=== PATIENT | female | born 1990 | race Caucasian/White ===

== ENCOUNTER 2017-07-14 13:54 | Day surgery (SDC) | payer OTHER ==
[2017-07-13 15:22] VITALS: BMI 35.5
[2017-07-14] MEDS ORDERED: ROCURONIUM BROMIDE 50 MG/5 ML VIAL ONE (16:12)
[2017-07-14] MEDS ORDERED: PROPOFOL 20 ML ONE (16:12)
[2017-07-14] MEDS ORDERED: MIDAZOLAM HCL 2 MG/2 ML SINGLE DOSE VIAL ONE (16:12)
[2017-07-14] MEDS ORDERED: ceFAZolin SODIUM 1 GM VIAL ONE (16:30)
[2017-07-14] MEDS ORDERED: ceFAZolin SODIUM 1 GM VIAL IVPB ONE (16:34)
[2017-07-14] MEDS ORDERED: DEXAMETHASONE SOD PHOSPHATE 4 MG/1 ML VIAL ONE (16:45)
[2017-07-14] MEDS ORDERED: KETOROLAC TROMETHAMINE 30 MG/1 ML VIAL ONE (17:07)
[2017-07-14] MEDS ORDERED: ISOSULFAN BLUE 10 MG/ML VIAL SQ ONE (17:20)
[2017-07-14] MEDS ORDERED: BUPIVACAINE HCL/PF 0.5% (5MG/ML) 10 ML VIAL ONE (17:43)
[2017-07-14] MEDS ORDERED: ONDANSETRON 4 MG/2 ML VIAL IVPUSH PRN (17:59)
[2017-07-14] MEDS ORDERED: SODIUM CHLORIDE 1,000 ML IV SCH ×2 (18:00→23:45)
[2017-07-14] MEDS ORDERED: ACETAMINOPHEN INJECTION 100 ML IVPB ONE (18:11)
--- NOTE | 2017-07-14 18:12 | OP ---
Operative Note - Note: Operative Date: 07/14/17 Pre-Operative Diagnosis: Epigastric Pain. Vomiting. GE Reflux Disease. Malfunctioning mechanical Device secondary to band Operation: Removal of Gastric Band plus sub-Q port. Lap Lysis of adhesions. Excision of fibrous capsule around stomach. Diagnostic Laparoscopy Findings: Large amount of adhesions between omentum, liver and band Post-Operative Diagnosis: Same as Pre-op (Abdominal adhesions;fibrous capsule around stomach) Surgeon: Gregorio Briceño Salt Machine Operator: Milton Hawkins Anesthesia: General Specimens Removed: Gastric Band plus sub-Q port Estimated Blood Loss (mls): 30 Operative Report Dictated: Yes
--- NOTE | 2017-07-14 18:12 | SURG ---
Surgery Loom Setter Note Loom Setter: Milton Hawkins PA-C Date of Service: 07/14/17 Diagnosis: Mechanical failure of slipped device (lap band), GERD, nausea/vomiting Procedure: Laprascopic removal of gastric band I was present for the entirety of the operative procedure. For further detail, please refer to operative report. Visit type - Case Type Case Type: Scheduled - New patient This patient is new to me today: Yes Date on this admission: 07/14/17
[2017-07-14] MEDS ORDERED: LACTATED RINGERS SOLUTION 1,000 ML IV SCH (18:30)
[2017-07-14] MEDS ORDERED: ACETAMINOPHEN 1000 MG/100 ML VIAL (NON FORMULARY) IVPB ONE (18:30)
[2017-07-14] MEDS ORDERED: FAMOTIDINE 20 MG/50 ML IVPB 20 MG/50 ML MG IVPB ONE (18:47)
[2017-07-14] MEDS ORDERED: FAMOTIDINE 20 MG PREMIXED IVPB IVPB ONE (19:05)
[2017-07-14] MEDS: oxyCODONE HCL 5 MG TABLET PO PRN (20:58)
--- NOTE | 2017-07-14 21:04 | HP ---
DATE OF ADMISSION: 07/14/2017 CHIEF COMPLAINT: 1. Epigastric pain. 2. Vomiting. 3. Malfunctioning mechanical device secondary to gastric band. HISTORY OF PRESENT ILLNESS: This patient is a 27-year-old female who has had the gastric band for approximately 3 years and causing her increasing difficulty. She has been experiencing increasing epigastric pain, vomiting related to malfunctioning of the gastric band. She presents now for elective removal of gastric band plus subcutaneous port. PAST MEDICAL AND SURGICAL HISTORY: Noncontributory except for placement of the band. MEDICATIONS: The patient takes no medication. ALLERGIES: She has no known allergies. REVIEW OF SYSTEMS: Neurologic: Within normal limits. Gastrointestinal: Positive for occasional heartburn and epigastric pain. Cardiovascular: Within normal limits. Genitourinary: Within normal limits. Musculoskeletal: Within normal limits. PHYSICAL EXAMINATION: General: A 27-year-old female, overweight, awake, alert. No acute distress. HEENT: No masses palpated. Lungs: Clear bilaterally. Heart: Regular sinus rhythm. Abdomen: Well-healed trocar incisions. Soft, nontender on palpation. Extremities: Within normal limits. IMPRESSION: Epigastric pain and vomiting secondary to malfunctioning gastric band. PLAN: Plan is for the OR for removal of gastric band plus subcutaneous port. Miriam [id number]
[2017-07-14] MEDS: FAMOTIDINE 20 MG/50 ML IVPB 20 MG/50 ML MG IVPB SCH (22:00)
[2017-07-15] MEDS: oxyCODONE HCL 5 MG TABLET PO PRN (00:48)
--- NOTE | 2017-07-15 08:45 | EKG ---
Test Reason : Blood Pressure : / mmHG Vent. Rate : 070 BPM Atrial Rate : 070 BPM P-R Int : 178 ms QRS Dur : 088 ms QT Int : 386 ms P-R-T Axes : 048 041 026 degrees QTc Int : 416 ms NORMAL SINUS RHYTHM CANNOT RULE OUT ANTERIOR INFARCT , AGE UNDETERMINED ABNORMAL ECG NO PREVIOUS ECGS AVAILABLE Confirmed by VERONIKA GUARDADO, YAA ([id number]) on 07/15/2017 8:44:45 AM Referred By: Confirmed By:YAA BANDA MD
[2017-07-15] MEDS: FAMOTIDINE 20 MG/50 ML IVPB 20 MG/50 ML MG IVPB SCH (09:07)
--- NOTE | 2017-07-15 09:52 | OP ---
DATE OF OPERATION: 07/14/2017 PREOPERATIVE DIAGNOSES: 1. Epigastric abdominal pain. 2. Vomiting. 3. Gastroesophageal reflux disease. 4. Malfunctioning mechanical complication of implantable device, secondary to gastric band. POSTOPERATIVE DIAGNOSES: 1. Epigastric abdominal pain. 2. Vomiting. 3. Gastroesophageal reflux disease. 4. Mechanical complication of implantable device, secondary to gastric band. 5. Abdominal adhesions. 6. Fibrous capsule around the stomach. PROCEDURES PERFORMED: 1. Removal of gastric band plus subcutaneous port component. 2. Excision of fibrous capsule around the stomach. 3. Laparoscopic lysis of adhesions. 4. Diagnostic laparoscopy. OPERATING SURGEON: Gregorio Briceño MD RN AMBULATORY: RUDY Arguello ANESTHESIA: General. OPERATIVE PROCEDURE: The patient was brought into the operating room and placed on the OR table in the supine position. All precautions were taken initially, including padding for the back and the feet, and Venodyne boots were placed on both lower extremities. At that point, the abdomen was prepped and draped in the usual manner. A Veress needle was placed in the left upper quadrant and a pneumoperitoneum was established. A number-12 bladeless trocar was placed in the left upper quadrant. Through that trocar, a laparoscopic camera was placed. Immediately upon placing the camera, there were noted to be a lot of adhesions from the patient's previous surgery. These were adhesions between the omentum and the anterior abdominal wall in the midline and also in the left upper quadrant in front of the laparoscope. At that point, a number-12 bladeless trocar was placed below the left costal margin. With the camera placed here, the adhesions in the left upper quadrant were lysed between the omentum and anterior abdominal wall. Enough opening was created that a number-15 trocar was placed in the right upper quadrant and a number-5 trocar below the right costal margin. At that point, a Scotty liver retractor was placed in the epigastrium to retract the left lobe of the liver. The patient was then placed in a 20-degree, reverse Trendelenburg position. The band tubing was noted in the left upper quadrant and this was grabbed by the operating surgeon. As the accounting assistant surgeon retracted the adhesions downward, the cautery was used to dissect the adhesions off of the band tubing and this led to the band around the top part of the stomach. As the accounting assistant surgeon retracted the band tubing to the patient's left side, the operating surgeon retracted the stomach on the lesser curvature inferiorly. This exposed the fibrous capsule around the band and this was dissected off with electrocautery until the entire band on the lesser curvature was now in full view. At this juncture, the operating surgeon pulled the band tubing toward the patient's right side as the accounting assistant surgeon retracted the stomach on the greater curvature inferiorly. Here, the fibrous capsule over the band was dissected with electrocautery and now the band was then opened and the band tubing was cut at the takeoff to the subcutaneous port. The band tubing was then placed from around the band and the band was then removed from around the stomach and sent off the field as a specimen to Pathology. Attention was now directed to the fibrous capsule around the stomach. With the accounting assistant operating surgeon holding it on a different side, the operating surgeon placed a scissors, dissected under the capsule and split the capsule from inferior to superior. Near the superior part, there appeared to be an opening which was suspicious that it was stomach. Methylene blue was placed by Anesthesia into the orogastric tube and no blue dye was seen in the operative field. Also, saline was placed around the area and the anesthesiologist blew the stomach up with air and no bubbles were noted. However, despite this, a [id number] suture was placed with the Endo Stitch and this closed what appeared to be a superficial opening, but it was not proven that it was stomach. Once the Endo Stitch was tied, it was completely closed. Now, the band was removed through the number-15 trocar site and sent off the field as specimen to Pathology. Under direct vision, all trocars were removed and the pneumoperitoneum released. At this point, the right upper quadrant port site was then opened and dissection continued with electrocautery down to the fibrous capsule on the port on the right anterior rectus muscle. The fibrous capsule removed and the port was then removed from the right anterior rectus muscle and sent off the field as specimen to Pathology. All trocar sites then received 0.25% Marcaine. The number-15 trocar site was closed with 3-0 Vicryl in the subcutaneous tissue and all trocar sites were closed with 4-0 Biosyn in a subcuticular fashion. Dressings were applied. The patient was awoken from anesthesia and transferred out of the operating room into the recovery room in stable condition. BLOOD LOSS: 50 mL. Patient transferred to the recovery room in stable condition. Miriam AGUIRRE/[id number]
[2017-07-15 10:46] VITALS: BP 123/63; PULSE 83; TEMP 98.9
--- NOTE | 2017-07-19 11:58 | PATH ---
Surgical Pathology Report Patient Name: YING BALDWIN Med. Rec. #: [id number] /Age/Gender: 1990 (Age: 27) / F Account: [id number] Location: [facility] Taken: 07/14/2017 Received: 07/18/2017 Reported: 07/19/2017 Physicians: Gregorio Briceño M.D. Specimen(s) Received REMOVED GASTRIC BAND Clinical History Morbid obesity Final Diagnosis GASTRIC BAND, REMOVAL: CONSISTENT WITH GASTRIC BAND (REHABILITATION ATTENDANT), GROSS EXAMINATION ONLY. Electronically Signed Eddie Orta M.D. Gross Description Received fresh labeled "removed gastric band," is a 4 cm in diameter white, annular device with a focal defect, consistent with a gastric band. The band displays a 42 cm in length portion of white tubing extending from one aspect. Also received within the same container is a 3 cm in diameter x 1.5 cm in depth white, circular device, consistent with a port. The port displays a 13 cm in length portion of tubing extending from one aspect. No soft tissue is present. No sections are submitted, gross only. DL/07/18/2017 saudi/07/18/2017
== END 2017-07-15 10:50 | disposition home or self-care (01) ==
LOC: JASU-SURG 13:54 → J8W 20:27 → JASU-SURG 07-15 10:50
PROVIDERS: ATTEND Surgery
PROC: 0DP60CZ Removal of Extraluminal Device from Stomach, Open Approach (ICD-10-PCS; 2017-07-14)
PROC: 0DN64ZZ Release Stomach, Percutaneous Endoscopic Approach (ICD-10-PCS; 2017-07-14)
PROC: 0DP64CZ Removal of Extraluminal Device from Stomach, Percutaneous Endoscopic Approach (ICD-10-PCS; principal; 2017-07-14 14:00)
DX: T85.518A Breakdown (mechanical) of other gastrointestinal prosthetic devices, implants and grafts, initial encounter (principal); K95.09 Other complications of gastric band procedure; K31.89 Other diseases of stomach and duodenum; R10.13 Epigastric pain; R11.10 Vomiting, unspecified; K21.9 Gastro-esophageal reflux disease without esophagitis; Y93.89 Activity, other specified; Y92.89 Other specified places as the place of occurrence of the external cause
CPT/HCPCS: 36415; 84703; 86850; 86900; 86901; 88300-TC; 93005; 93010; 94760; J0131; J7030

== ENCOUNTER 2017-07-16 14:34 | Emergency (ER) | payer OTHER ==
--- NOTE | 2017-07-16 14:35 | PDOC ---
History of Present Illness - General History Source: Patient Exam Limitations: No Limitations - History of Present Illness Initial Comments: 07/16/17 16:23 The patient is a 27 year old female with no significant PMH who presents to the emergency department with shortness of breath for 3 days. The patient reports that she had a lap band removal surgery 3 days ago . she reports that since then she has been experiencing shortness of breath. The patient reports associated chest pain with her shortness of breath. She states that she also experiences her chest pain with deep breath. The patient denies any any headache and dizziness. She denies any fever, chills, nausea, vomit, diarrhea, constipation or urinary symptoms. The patient denies any other complaints. <Starla Olmstead - Last Filed: 07/16/17 16:23> <Giuliana Anderson - Last Filed: 07/16/17 18:51> - General Chief Complaint: Shortness of Breath Stated Complaint: SOB Time Seen by Provider: 07/16/17 14:35 Past History <Starla Olmstead - Last Filed: 07/16/17 16:23> - Past Medical History Anemia: No Asthma: No Cancer: No Cardiac Disorders: No CVA: No COPD: No CHF: No Dementia: No Diabetes: No GI Disorders: No Disorders: Yes (PCOS) HTN: No Hypercholesterolemia: No Liver Disease: No Seizures: No Thyroid Disease: No - Surgical History Abdominal Surgery: Yes (GASTRIC BAND) Appendectomy: No Cardiac Surgery: No Cholecystectomy: No Lung Surgery: No Neurologic Surgery: No Orthopedic Surgery: No - Suicide/Smoking/Psychosocial Hx Smoking Status: No Smoking History: Never smoked Have you smoked in the past 12 months: No Number of Cigarettes Smoked Daily: 0 Hx Alcohol Use: No Drug/Substance Use Hx: No Substance Use Type: Alcohol Hx Substance Use Treatment: No <Giuliana Anderson - Last Filed: 07/16/17 18:51> - Past Medical History Allergies/Adverse Reactions: Allergies Allergy/AdvReac Type Severity Reaction Status Date / Time No Known Allergies Allergy Verified 07/16/17 14:35 Home Medications: Ambulatory Orders Bcp 1 cap PO DAILY 07/13/17 Famotidine [Pepcid -] 20 mg PO BID #60 tablet 07/14/17 Oxycodone HCl/Acetaminophen [Percocet 5-325 mg Tablet] 1 - 2 tab PO Q6H PRN #20 tab MDD 4 07/14/17 Cephalexin [Keflex] 500 mg PO BID #6 capsule 07/16/17 Review of Systems - Review of Systems Able to Perform ROS?: Yes Comments:: 07/16/17 16:23 GENERAL/CONSTITUTIONAL: No fever or chills. No weakness. HEAD, EYES, EARS, NOSE AND THROAT: No change in vision. No ear pain or discharge. No sore throat. CARDIOVASCULAR: (+)chest pain and shortness of breath. RESPIRATORY: No cough, wheezing, or hemoptysis. GASTROINTESTINAL: No nausea, vomiting, diarrhea or constipation. GENITOURINARY: No dysuria, frequency, or change in urination. MUSCULOSKELETAL: No joint or muscle swelling or pain. No neck or back pain. SKIN: No rash NEUROLOGIC: No headache, vertigo, loss of consciousness, or change in strength/ sensation. ENDOCRINE: No increased thirst. No abnormal weight change. HEMATOLOGIC/LYMPHATIC: No anemia, easy bleeding, or history of blood clots. ALLERGIC/IMMUNOLOGIC: No hives or skin allergy. <Starla Olmstead - Last Filed: 07/16/17 16:23> *Physical Exam - Vital Signs Last Vital Signs Temp Pulse Resp BP Pulse Ox 98.8 F 74 20 115/67 100 07/16/17 14:35 07/16/17 14:35 07/16/17 14:35 07/16/17 14:35 07/16/17 14:35 - Physical Exam Comments: 07/16/17 16:23 GENERAL: Awake, alert, and fully oriented, in no acute distress HEAD: No signs of trauma EYES: PERRLA, EOMI, sclera anicteric, conjunctiva clear ENT: Auricles normal inspection, hearing grossly normal, nares patent, oropharynx clear without exudates. Moist mucosa NECK: Normal ROM, supple, no lymphadenopathy, JVD, or masses LUNGS: Breath sounds equal, clear to auscultation bilaterally. No wheezes, and no crackles HEART: Regular rate and rhythm, normal S1 and S2, no murmurs, rubs or gallops ABDOMEN: Belly Soft, nontender, normoactive bowel sounds. No guarding, no rebound. No masses EXTREMITIES: Normal range of motion, no edema in legs, no calf tenderness. No clubbing or cyanosis. No cords, erythema, or tenderness NEUROLOGICAL: Cranial nerves II through XII grossly intact. Normal speech, normal gait SKIN: Warm, Dry, normal turgor, no rashes or lesions noted. <Starla Olmstead - Last Filed: 07/16/17 16:23> Heart Score/ECG Review - ECG Intrepretation Comment:: 07/16/17 16:31 sinus at 78, nl axis, nl interval, no acute st/t wave findings <Giuliana Anderson - Last Filed: 07/16/17 18:51> ED Treatment Course - LABORATORY CBC & Chemistry Diagram: 07/16/17 16:05 07/16/17 16:05 - Medications Given in the ED: ED Medications Discontinued Medications Generic Name Dose Route Start Last Admin Trade Name Freq PRN Reason Stop Dose Admin Sodium Chloride 1,000 ml 07/16/17 15:06 07/16/17 16:15 Normal Saline - IV 07/16/17 15:07 1,000 ml ONCE ONE Administration <Starla Olmstead - Last Filed: 07/16/17 16:23> - LABORATORY CBC & Chemistry Diagram: 07/16/17 16:05 07/16/17 16:05 <Giuliana Anderson - Last Filed: 07/16/17 18:51> Medical Decision Making - Medical Decision Making 07/16/17 15:13 a/p: 27yo female with pleuritic cp after having surgery monday -pt is s/p laproscopic lap band removal on monday with dr. handy -has been mainly in bed since -no leg swelling or calf cramping -c/o feeling sob and having pleuritic cp -spoke with her surgeon this AM who sent her in for eval for poss PE -differential - chest discomfort from intubation, pe, pna, atelectasis, abd free air from laproscopic surgery pushing up on the diaphragms -discussed CT imaging - pt requesting to have CT imaging -will obtain labs, ekg, cta chest to eval for pe 07/16/17 18:38 pt states she is feeling better has been burping which is relieving the pain discussed lab results will give abx for uti pt pending ct read 07/16/17 18:[address] small b/l pleural effusions and compressive atelectasis discussed imaging findings pt has an incentive spirometer at home, however is not using it discussed needing to use the Incentive spirometer at home answered all questions discussed all reasons to return to the ED. stable for d/c to home <Giuliana Anderson - Last Filed: 07/16/17 18:51> *DC/Admit/Observation/Transfer - Attestations Scribe Attestion: 07/16/17 16:24 Documentation prepared by Starla Olmstead, acting as chief medical officer for Giuliana Anderson MD <Starla Olmstead - Last Filed: 07/16/17 16:23> - Discharge Dispostion Decision to Admit order: No - Attestations Physician Attestion: 07/16/17 18:41 I, Dr. Giuliana Anderson, DO, attest that this document has been prepared under my direction and personally reviewed by me in its entirety. I further attest, that it accurately reflects all work, treatment, procedures and medical decision -making performed by me. <Giuliana Anderson - Last Filed: 07/16/17 18:51> Diagnosis at time of Disposition: Dyspnea, UTI (urinary tract infection) - Discharge Dispostion Disposition: HOME Condition at time of disposition: Stable - Prescriptions Prescriptions: Cephalexin [Keflex] 500 mg PO BID #6 capsule - Referrals Referrals: Gregorio Handy MD [Staff Physician] - - Patient Instructions Printed Discharge Instructions: DI for Shortness of Breath Additional Instructions: Please take all medications as prescribed. Please try to walk around to help move the gas. Please drink plenty of water. Please follow up with your surgeon next week.
[2017-07-16] MEDS ORDERED: SODIUM CHLORIDE 0.9% 1000 ML INFUS.BAG IV ONE (15:06)
[2017-07-16 15:18] VITALS: BP 115/67; PULSE 74; TEMP 98.8; BMI 35.5
[2017-07-16 16:27] LABS: BASO % 1.5 % (0-2.0); EOS % 3.9 % (0-4.5); HEMATOCRIT 36.3 % (32.4-45.2); HEMOGLOBIN 12.7 GM/dl (10.7-15.3); LYMPH % 23.1 % (8-40); MCH 29.7 pg (25.7-33.7); MEAN CELL VOLUME 84.8 fl (80-96); MEAN PLT VOLUME 7.7 fl (7.5-11.1); NEUT % 64.5 % (42.8-82.8); PLATELET COUNT 393 K/MM3 (134-434); RBC 4.28 M/mm3 (3.60-5.2); RDW 12.4 % (11.6-15.6); WHITE BLOOD COUNT 14.2 K/mm3 (4.0-10.8)
[2017-07-16 16:40] LABS: ALBUMIN 3.7 g/dl (3.5-5.0); ALK PHOS 68 U/L (32-92); ANION GAP 4 (8-16); BILIRUBIN,TOTAL 0.2 mg/dl (0.2-1.0); BLOOD UREA NITROGEN 7 mg/dl (7-18); CALCIUM 9.1 mg/dl (8.4-10.2); CHLORIDE 104 mmol/L (98-107); CO2 29 mmol/L (22-28); CREATININE 0.6 mg/dl (0.6-1.3); GLUCOSE,RANDOM 79 mg/dl (74-106); POTASSIUM 3.8 mmol/L (3.5-5.1); SGOT/AST 18 U/L (10-42); SGPT/ALT 19 U/L (10-40); SODIUM 137 mmol/L (136-145); TOT PROT 6.7 g/dl (6.4-8.3)
[2017-07-16 16:46] LABS: URINE APPEARANCE Clear; URINE BILIRUBIN Negative (NEGATIVE); URINE COLOR YELLOW; URINE GLUCOSE (UA) Negative (NEGATIVE); URINE KETONE Negative (NEGATIVE); URINE LEUK ESTERASE TRACE (NEGATIVE); URINE NITRITE Negative (NEGATIVE); URINE PROTEIN Negative (NEGATIVE); URINE UROBILINOGEN 0.2 (0.2-1.0)
[2017-07-16 16:54] LABS: HCG,QUALITATIVE URINE Negative
[2017-07-16 16:59] LABS: AMORP URATES FEW /hpf (NONE SEEN); EPI CELLS MODERATE /HPF
[2017-07-16 17:00] LABS: URINE BACTERIA FEW /hpf (NEGATIVE)
[2017-07-16] MEDS ORDERED: CEPHALEXIN MONOHYDRATE 500 MG CAPSULE (UD) PO ONE (18:38)
[2017-07-16] MEDS ORDERED: CEPHALEXIN MONOHYDRATE 500 MG CAPSULE (UD) ONE (19:03)
--- NOTE | 2017-07-17 08:48 | EKG ---
Test Reason : Blood Pressure : / mmHG Vent. Rate : 078 BPM Atrial Rate : 078 BPM P-R Int : 176 ms QRS Dur : 090 ms QT Int : 390 ms P-R-T Axes : 044 047 028 degrees QTc Int : 444 ms NORMAL SINUS RHYTHM NORMAL ECG WHEN COMPARED WITH ECG OF 14-JUL-2017 14:37, NO SIGNIFICANT CHANGE WAS FOUND BASELINE ARTIFACT Confirmed by ABRAM GUARDADO, GERARD ([id number]) on 07/17/2017 8:48:21 AM Referred By: FIONA MATIAS Confirmed By:GERARD VALVERDE MD
== END 2017-07-16 19:08 | disposition home or self-care (01) ==
LOC: FER 14:34
PROC: 3E0337Z Introduction of Electrolytic and Water Balance Substance into Peripheral Vein, Percutaneous Approach (ICD-10-PCS; principal; 2017-07-16)
DX: R06.00 Dyspnea, unspecified (principal); N39.0 Urinary tract infection, site not specified; Z98.890 Other specified postprocedural states; E28.2 Polycystic ovarian syndrome
CPT/HCPCS: 36415; 71275-TC; 80053; 81003; 81015; 84703; 85025; 93005; 99282-25; J7030

== ENCOUNTER 2017-07-22 17:33 | Emergency (ER) | payer OTHER ==
[2017-07-22 17:46] VITALS: BP 119/76; PULSE 89; TEMP 98.3; BMI 34.4
--- NOTE | 2017-07-22 17:59 | PDOC ---
History of Present Illness <Beverley Black - Last Filed: 07/22/17 18:24> - General History Source: Patient Exam Limitations: No Limitations - History of Present Illness Initial Comments: 07/22/17 19:51 The patient is a 27 year old female, with no significant PMH of who presents to the emergency department with a wound s/p lap band removal. The patient reports that she had her lap band removal 1 week ago. The patient reports that she took off the band aids on She reports that she began to experience leaking from one of her incision sites last night. The patient reports that she went through 2 bandaids since last night. The patient denies any pain. She reports that she has been able to eat and pass normal bowels and gas. She denies any fever, chills, nausea, vomit, diarrhea, constipation or urinary symptoms. She denies chest pain, shortness of breath, headache and dizziness. She denies any other complaints. PCP: Dr. Briceño <Starla Olmstead - Last Filed: 07/22/17 19:53> - General Chief Complaint: Wound Stated Complaint: OOZING FROM LAPBAND REMOVAL SURGICAL SITE Past History - Past Medical History Anemia: No Asthma: No Cancer: No Cardiac Disorders: No CVA: No COPD: No CHF: No Dementia: No Diabetes: No GI Disorders: No Disorders: Yes (PCOS) HTN: No Hypercholesterolemia: No Liver Disease: No Seizures: No Thyroid Disease: No - Surgical History Abdominal Surgery: Yes (GASTRIC BAND) Appendectomy: No Cardiac Surgery: No Cholecystectomy: No Lung Surgery: No Neurologic Surgery: No Orthopedic Surgery: No - Suicide/Smoking/Psychosocial Hx Smoking Status: No Smoking History: Never smoked Have you smoked in the past 12 months: No Number of Cigarettes Smoked Daily: 0 Information on smoking cessation initiated: No Hx Alcohol Use: Yes (SOCIAL) Drug/Substance Use Hx: No Substance Use Type: Alcohol Hx Substance Use Treatment: No <Beverley Black - Last Filed: 07/22/17 18:24> <Starla Olmstead - Last Filed: 07/22/17 19:53> - Past Medical History Allergies/Adverse Reactions: Allergies Allergy/AdvReac Type Severity Reaction Status Date / Time No Known Allergies Allergy Verified 07/22/17 17:38 Home Medications: Ambulatory Orders NK [No Known Home Medication] 07/22/17 Review of Systems - Review of Systems Able to Perform ROS?: Yes Comments:: 07/22/17 19:51 GENERAL/CONSTITUTIONAL: No fever or chills. No weakness. HEAD, EYES, EARS, NOSE AND THROAT: No change in vision. No ear pain or discharge. No sore throat. CARDIOVASCULAR: No chest pain or shortness of breath. RESPIRATORY: No cough, wheezing, or hemoptysis. GASTROINTESTINAL: No nausea, vomiting, diarrhea or constipation. GENITOURINARY: No dysuria, frequency, or change in urination. MUSCULOSKELETAL: No joint or muscle swelling or pain. No neck or back pain. SKIN:(+)incision leakage. No rash NEUROLOGIC: No headache, vertigo, loss of consciousness, or change in strength/ sensation. ENDOCRINE: No increased thirst. No abnormal weight change. HEMATOLOGIC/LYMPHATIC: No anemia, easy bleeding, or history of blood clots. ALLERGIC/IMMUNOLOGIC: No hives or skin allergy. <Starla Olmstead - Last Filed: 07/22/17 19:53> *Physical Exam - Vital Signs Last Vital Signs Temp Pulse Resp BP Pulse Ox 98.3 F 89 16 119/76 100 07/22/17 17:37 07/22/17 17:37 07/22/17 17:37 07/22/17 17:37 07/22/17 17:37 <Beverley Black - Last Filed: 07/22/17 18:24> - Vital Signs Last Vital Signs Temp Pulse Resp BP Pulse Ox 98.3 F 89 16 119/76 100 07/22/17 17:37 07/22/17 17:37 07/22/17 17:37 07/22/17 17:37 07/22/17 17:37 - Physical Exam Comments: 07/22/17 19:52 GENERAL: Awake, alert, and fully oriented, in no acute distress HEAD: No signs of trauma EYES: PERRLA, EOMI, sclera anicteric, conjunctiva clear ENT: Auricles normal inspection, hearing grossly normal, nares patent, oropharynx clear without exudates. Moist mucosa NECK: Normal ROM, supple, no lymphadenopathy, JVD, or masses LUNGS: Breath sounds equal, clear to auscultation bilaterally. No wheezes, and no crackles HEART: Regular rate and rhythm, normal S1 and S2, no murmurs, rubs or gallops ABDOMEN: Soft, nontender, normoactive bowel sounds. No guarding, no rebound. No masses EXTREMITIES: Normal range of motion, no edema. No clubbing or cyanosis. No cords, erythema, or tenderness NEUROLOGICAL: Cranial nerves II through XII grossly intact. Normal speech, normal gait SKIN: Warm, Dry, normal turgor, no rashes or lesions noted. <Starla Olmstead - Last Filed: 07/22/17 19:53> Medical Decision Making - Medical Decision Making 07/22/17 18:07 Pt presents to the ED complaining of serosanguinous drainage from incision site of laproscopic lap band removal. Wound appears to be healing, with minimal tenderness and no surrounding erythema or drainage from the wound. Patient has no systemic signs of infection and is tolerating PO and passing flatus. No signs or symptoms suggestive of wound infection. Will discharge home with follow up with Dr. Briceño/ 07/22/17 18:24 07/22/17 18:25 <Beverley Black - Last Filed: 07/22/17 18:24> *DC/Admit/Observation/Transfer - Discharge Dispostion Decision to Admit order: No <Beverley Black - Last Filed: 07/22/17 18:24> - Attestations Scribe Attestion: 07/22/17 19:52 Documentation prepared by Starla Olmstead, acting as medical laboratory technicians for Beverley Black MD. <Starla Olmstead - Last Filed: 07/22/17 19:53> Diagnosis at time of Disposition: Wound drainage - Discharge Dispostion Disposition: HOME Condition at time of disposition: Good - Patient Instructions Printed Discharge Instructions: How to Care for a Surgical Wound-Stitches Additional Instructions: return to the ED for fever, severe abdominal pain, spreading redness around the wounds, nausea and vomiting, pus coming from wounds. Make sure that you call Dr. Briceño next week for follow up.
== END 2017-07-22 18:27 | disposition home or self-care (01) ==
LOC: FER 17:33
DX: Z98.84 Bariatric surgery status (principal); E28.2 Polycystic ovarian syndrome
CPT/HCPCS: 99282-25

== ENCOUNTER 2018-11-20 18:12 | Emergency (ER) | payer SELFPAY ==
[2018-11-20 18:22] VITALS: BP 117/79; PULSE 80; TEMP 98; BMI 35.5
[2018-11-20] MEDS ORDERED: DIPHTH,PERTUSS(ACELL),TET 0.5 ML DISP.SYRIN IM ONE ×2 (20:37→20:39)
--- NOTE | 2018-11-21 01:35 | PDOC ---
Documentation entered by Joan Hauser SCRIBE, acting as scribe for Evelin Deal MD. Evelin Deal MD: This documentation has been prepared by the youibeMurtaza Lincy, SCRIBE, under my direction and personally reviewed by me in its entirety. I confirm that the documentation accurately reflects all work, treatment, procedures, and medical decision making performed by me. History of Present Illness - General Chief Complaint: Laceration Stated Complaint: LEFT THUMB LACERATION Time Seen by Provider: 11/20/18 19:12 History Source: Patient Exam Limitations: No Limitations - History of Present Illness Initial Comments: 11/20/18 20:14 The patient is a 28-year-old female with no reported past medical history who presents to the emergency department s/p sustaining a laceration to the left thumb. The patient reports about 2 hours prior she was cooking when she accidentally sustained a cut to the tip of the left thumb. The patient reports applying pressure to the wound, without relief. The patient states initially she felt a sharp pain; currently, it feels numb. The patient states shes unable to move the thumb secondary to pain. Past History - Past Medical History Allergies/Adverse Reactions: Allergies Allergy/AdvReac Type Severity Reaction Status Date / Time No Known Allergies Allergy Verified 11/20/18 18:14 Home Medications: Ambulatory Orders NK [No Known Home Medication] 11/20/18 Anemia: No Asthma: No Cancer: No Cardiac Disorders: No CVA: No COPD: No CHF: No Dementia: No Diabetes: No GI Disorders: No Disorders: Yes (PCOS) HTN: No Hypercholesterolemia: No Liver Disease: No Seizures: No Thyroid Disease: No - Surgical History Abdominal Surgery: Yes (GASTRIC BAND) Appendectomy: No Cardiac Surgery: No Cholecystectomy: No Lung Surgery: No Neurologic Surgery: No Orthopedic Surgery: No - Psycho Social/Smoking Cessation Hx Smoking Status: No Smoking History: Never smoked Have you smoked in the past 12 months: No Number of Cigarettes Smoked Daily: 0 Hx Alcohol Use: No Drug/Substance Use Hx: No Substance Use Type: Alcohol Hx Substance Use Treatment: No Review of Systems - Review of Systems Able to Perform ROS?: Yes Comments:: 11/20/18 20:14 CONSTITUTIONAL: Pt denies Fever, Chills, weakness. HEENT: denies vision changes, sore throat RESPIRATORY: Denies cough, sob, hemoptysis CARDIAC: denies chest pain, palpitations, lightheadedness, leg swelling ABD/GI: denies abd pain, nausea, vomiting, blood per rectum, melena, diarrhea : denies dysuria, frequency, discharge MSK: +left thumb laceration. denies back pain, joint swelling SKIN: denies bruising, erythema, rash NEUROLOGICAL: denies headache, numbness, focal weakness, tingling, ataxia, weakness HEMATOLOGICAL: denies anemia, easy bruising, easy bleeding *Physical Exam - Vital Signs Last Vital Signs Temp Pulse Resp BP Pulse Ox 98 F 80 18 117/79 99 11/20/18 18:13 11/20/18 18:13 11/20/18 18:13 11/20/18 18:13 11/20/18 18:13 - Physical Exam Comments: 11/20/18 20:14 GENERAL: The patient is awake, alert, and fully oriented, in no acute distress. EXTREMITIES: +1x1 cm full thickness skin avulsion ulnar side of the left thumb finger tip. No significant nail damage, minimal bleeding, mild decreased to light touch to the area around the wound, no other sign of edema, tenderness or skin wound. Remainder of the extremity exam: Normal range of motion, no edema. No clubbing or cyanosis. No cords, erythema, or tenderness. Procedures - Laceration/Wound Repair Left Distal 1st digit Wound Length: to 2.5 cm Wound's Depth, Shape: superficial Progress: Left thumb distal phalanx skin avulsion cleansed with sterile normal saline. Mild persistent bleeding controlled with direct pressure. Bacitracin ointement , followed by xeroform gauze applied to the avulsed skin surface. Sterile gauze dressing, followed by tube dressing applied. Discharge - Discharge Information Clinical Impression/Diagnosis: Skin avulsion Condition: Stable Disposition: HOME - Follow up/Referral - Patient Discharge Instructions Patient Printed Discharge Instructions: DI for Avulsion Laceration (Not Requiring Sutures) Additional Instructions: keep wound covered and as dry as possible for 2 days followup with your doctor for first bandage change in 2-3 days protective dressing as needed after initial bandage change return or see your doctor if thumb becomes more painful/swollen - Post Discharge Activity
== END 2018-11-20 20:45 | disposition home or self-care (01) ==
LOC: FER 18:12
PROC: 3E0234Z Introduction of Serum, Toxoid and Vaccine into Muscle, Percutaneous Approach (ICD-10-PCS; principal; 2018-11-20)
DX: S61.012A Laceration without foreign body of left thumb without damage to nail, initial encounter (principal); W26.0XXA Contact with knife, initial encounter; Y93.G1 Activity, food preparation and clean up; Y92.000 Kitchen of unspecified non-institutional (private) residence as the place of occurrence of the external cause; Z98.84 Bariatric surgery status; E28.2 Polycystic ovarian syndrome
CPT/HCPCS: 90715; 99281-25

== ENCOUNTER 2020-12-02 17:24 | Emergency (ER) | payer OTHER ==
[2020-12-02 17:49] VITALS: BMI 37.1
[2020-12-02] MEDS ORDERED: ACETAMINOPHEN 1000 MG/100 ML VIAL IVPB ONE (18:26)
[2020-12-02] MEDS ORDERED: SODIUM CHLORIDE 1,000 ML IV STA (18:26)
[2020-12-02] MEDS ORDERED: ACETAMINOPHEN INJECTION 100 ML IVPB ONE (19:55)
[2020-12-02 21:07] LABS: BASO % 0.3 % (0-2.0); HEMATOCRIT 39.8 % (32.4-45.2); HEMOGLOBIN 13.6 GM/dL (10.7-15.3); LYMPH % 8.7 % (8-40); MCH 29.1 pg (25.7-33.7); MCHC 34.1 g/dl (32.0-36.0); MEAN CELL VOLUME 85.3 fl (80-96); MEAN PLT VOLUME 7.1 fl (7.5-11.1); MONO % 3.8 % (3.8-10.2); NEUT % 87.2 % (42.8-82.8); PLATELET COUNT 369 10^3/uL (134-434); RBC 4.67 M/mm3 (3.60-5.2); RDW 13.6 % (11.6-15.6)
[2020-12-02 21:53] LABS: CALCIUM 9.4 mg/dL (8.5-10.1)
[2020-12-02 21:54] LABS: ALBUMIN 3.9 g/dl (3.4-5.0); BLOOD UREA NITROGEN 10.3 mg/dL (7-18)
[2020-12-02 21:57] LABS: CREATININE 0.7 mg/dL (0.55-1.3)
[2020-12-02 21:59] LABS: BILIRUBIN,TOTAL 0.5 mg/dL (0.2-1); TOT PROT 7.7 g/dl (6.4-8.2)
[2020-12-02] MEDS ORDERED: DEXAMETHASONE LIQUID 0.5 MG/5 ML PO ONE (22:41)
[2020-12-02] MEDS ORDERED: DEXAMETHASONE SOD PHOSPHATE 10 MG/1 ML VIAL ONE (22:49)
[2020-12-02 23:18] VITALS: BP 137/77; PULSE 86; TEMP 98.9
== END 2020-12-02 23:18 | disposition home or self-care (01) ==
LOC: JER 17:24
PROC: 3E033NZ Introduction of Analgesics, Hypnotics, Sedatives into Peripheral Vein, Percutaneous Approach (ICD-10-PCS; principal; 2020-12-02)
PROC: 3E0337Z Introduction of Electrolytic and Water Balance Substance into Peripheral Vein, Percutaneous Approach (ICD-10-PCS; 2020-12-02)
DX: J02.9 Acute pharyngitis, unspecified (principal)
CPT/HCPCS: 36415; 80053; 84703; 85025; 87070; 99284-25; C9803; J0131; U0003; U0005

== ENCOUNTER 2022-05-19 00:46 | Emergency (ER) | payer OTHER ==
[2022-05-19 00:58] VITALS: BP 114/73; PULSE 88; RESP 18; TEMP 98.9; BMI 40.3
[2022-05-19 02:08] LABS: PH,URINE 5.5 (5.0-8.0); URINE APPEARANCE CLEAR; URINE BILIRUBIN NEGATIVE (NEGATIVE); URINE COLOR YELLOW; URINE GLUCOSE (UA) NEGATIVE (NEGATIVE); URINE KETONE NEGATIVE (NEGATIVE); URINE LEUK ESTERASE NEGATIVE (NEGATIVE); URINE NITRITE NEGATIVE (NEGATIVE); URINE PROTEIN NEGATIVE (NEGATIVE); URINE UROBILINOGEN 0.2 mg/dL (0.2-1.0)
== END 2022-05-19 01:59 | disposition home or self-care (01) ==
LOC: FER 00:46
DX: O26.851 Spotting complicating pregnancy, first trimester (principal); O20.0 Threatened abortion; O9A.211 Injury, poisoning and certain other consequences of external causes complicating pregnancy, first trimester; V49.60XA Unspecified car occupant injured in collision with unspecified motor vehicles in traffic accident, initial encounter; Z3A.09 9 weeks gestation of pregnancy
CPT/HCPCS: 76815; 81003; 99284-25

== ENCOUNTER 2022-06-18 22:27 | Emergency (ER) | payer OTHER ==
[2022-06-18 22:35] VITALS: BP 120/70; PULSE 78; RESP 18; TEMP 98.3; BMI 40.8
[2022-06-18 22:59] LABS: HEMATOCRIT 38.1 % (32.4-45.2); HEMOGLOBIN 12.8 G/dL (10.7-15.3); MCH 29.7 pg (25.7-33.7); MCHC 33.6 g/dl (32.0-36.0); MEAN CELL VOLUME 88.6 fl (80-96); MEAN PLT VOLUME 7.3 fl (7.5-11.1); RDW 13.9 % (11.6-15.6); WHITE BLOOD COUNT 15.2 10^3/uL (4.0-10.8)
[2022-06-18 23:18] LABS: ALBUMIN 3.2 g/dl (3.4-5.0); BILIRUBIN,TOTAL 0.1 mg/dl (0.2-1); CALCIUM 8.7 mg/dl (8.5-10); CREATININE 0.5 mg/dl (0.55-1.3); TOT PROT 6.4 g/dl (6.4-8.2)
== END 2022-06-19 01:04 | disposition home or self-care (01) ==
LOC: FER 22:27
DX: O20.0 Threatened abortion (principal); O20.9 Hemorrhage in early pregnancy, unspecified; Z3A.14 14 weeks gestation of pregnancy
CPT/HCPCS: 36415; 76815-TC; 80053; 84702; 85027; 99284-25